=== PATIENT | male | born 1955 ===

== ENCOUNTER 2016-11-24 21:51 | Emergency (ER) | payer MEDICAID ==
[2016-11-24 21:51] VITALS: BMI 29.5
[2016-11-24 22:01] VITALS: BP 132/82; PULSE 84; RESP 18; TEMP 98.5; O2SAT 100
--- NOTE | 2016-11-24 22:26 | ED PDOC ---
HPI: Eye Injury/Pain Time Seen by Provider: 11/24/16 22:02 Chief Complaint (Nursing): Eye Problem Chief Complaint (Provider): Bilateral redness and drainage of both eyes History Per: Patient History/Exam Limitations: no limitations Onset/Duration Of Symptoms: Days (2) Current Symptoms Are (Timing): Still Present Injury To Eye?: No Severity: Mild (Irritated) Quality: Burning Wears Contact Lens?: No Associated Symptoms: Itching, Discharge From Eye (White ). denies: Decreased Vision, Swelling Past Medical History Reviewed: Historical Data, Nursing Documentation, Vital Signs Vital Signs: Last Vital Signs Temp 98.5 F 11/24/16 21:59 Pulse 84 11/24/16 21:59 Resp 18 11/24/16 21:59 BP 132/82 11/24/16 21:59 Pulse Ox 100 11/24/16 21:59 - Medical History PMH: HIV, HTN Denies: Chronic Kidney Disease - Surgical History Surgical History: No Surg Hx - Family History Family History: States: No Known Family Hx - Living Arrangements Living Arrangements: With Family - Social History Current smoker - smoking cessation education provided: No Alcohol: None Drugs: Denies - Home Medications Home Medications: Ambulatory Orders Medication Instructions Recorded Aspirin 81 mg PO DAILY 04/22/14 Atorvastatin [Lipitor] 10 mg PO HS 04/22/14 Dolutegravir Sodium [Tivicay] 50 mg PO DAILY 04/22/14 Emtricitabine/Tenofovir Diso 1 tab PO DAILY 04/22/14 [Truvada 200 MG-300 MG] Enalapril Maleate [Vasotec] 10 mg PO DAILY 04/22/14 Lamotrigine [Lamictal] 200 mg PO DAILY 04/22/14 Olanzapine [Zyprexa] 5 mg PO DAILY 04/22/14 Omeprazole 20 mg PO DAILY 04/22/14 Prazosin HCL [Minipress] 2 mg PO HS 04/22/14 Sertraline HCl [Zoloft] 50 mg PO QAM 04/22/14 valACYclovir [Valtrex] 500 mg PO DAILY 04/22/14 Levofloxacin [Levaquin Leva-Norman] 750 mg PO DAILY #1 packet 02/10/15 Oseltamivir [Tamiflu] 75 mg PO BID 5 Days 02/10/15 Polymyxin/Trimethoprim Sulfate 1 drop XX Q6H 10 Days 11/24/16 [Polytrim Ophth Soln] - Allergies Allergies/Adverse Reactions: Allergies Allergy/AdvReac Type Severity Reaction Status Date / Time No Known Allergies Allergy Verified 04/22/14 11:24 Review of Systems ROS Statement: Except As Marked, All Systems Reviewed And Found Negative Eyes: Positive for: Pain, Redness Physical Exam - Reviewed Nursing Documentation Reviewed: Yes Vital Signs Reviewed: Yes - Physical Exam Appears: Positive for: Well, Non-toxic, No Acute Distress Head Exam: Positive for: ATRAUMATIC, NORMAL INSPECTION, NORMOCEPHALIC Skin: Positive for: Normal Color, Warm, DRY Eye Exam: Positive for: EOMI, PERRL, Conjunctival injection. Negative for: Normal appearance ENT: Positive for: Normal ENT Inspection Neck: Positive for: Normal, Painless ROM Back: Positive for: Normal Inspection Extremity: Positive for: Normal ROM Neurologic/Psych: Positive for: Alert, Oriented - ECG O2 Sat by Pulse Oximetry: 100 Disposition - Clinical Impression Clinical Impression: Bacterial conjunctivitis - Patient ED Disposition Is Patient to be Admitted: No Counseled Patient/Family Regarding: Diagnosis, Need For Followup, Rx Given - Disposition Disposition: Routine/Home Disposition Time: 22:24 Condition: GOOD Prescriptions: Polymyxin/Trimethoprim Sulfate [Polytrim Ophth Soln] 1 drop XX Q6H 10 Days Instructions: Conjunctivitis (ED)
== END 2016-11-24 23:11 | disposition home or self-care (01) ==
LOC: H.ER 21:51
DX: H10.023 Other mucopurulent conjunctivitis, bilateral (principal); I10 Essential (primary) hypertension; Z79.82 Long term (current) use of aspirin